=== PATIENT | female | born 1940 | race Native Hawaiian/Other Pacific Islander ===

== ENCOUNTER 2016-05-22 09:04 | Outpatient (CLI) | payer OTHER ==
[~2016-05-22 09:04] MED LIST: BENICAR HCT1 TAB PO; DIPY200C PO; FEXOFENADINE H180 MG OR; GLIP2.5T3 PO; KETO10TA34 PO; MACROBID100 MG OR; TRIM800T12 PO; VERA240T17 PO
== END 2016-05-22 19:14 | disposition home or self-care (01) ==
LOC: LABW 09:04
PROVIDERS: Internal Medicine Interventional Cardiology
DX: E78.4 Other hyperlipidemia (principal); Z09 Encounter for follow-up examination after completed treatment for conditions other than malignant neoplasm
CPT/HCPCS: 36415; 80061; 80076

== ENCOUNTER 2016-05-29 08:38 | Outpatient (CLI) | payer OTHER ==
[2016-05-29 08:54] LABS: PLATELET COUNT 250 K/uL (152-353)
== END 2016-05-29 09:38 | disposition home or self-care (01) ==
LOC: LABW 08:38
PROVIDERS: Internal Medicine Gastroenterology
DX: K92.1 Melena (principal)
CPT/HCPCS: 36415; 85027

== ENCOUNTER 2016-07-27 09:24 | Outpatient (CLI) | payer OTHER ==
[2016-07-27 09:55] LABS: PLATELET COUNT 278 K/uL (152-353)
[2016-07-27 10:50] LABS: POTASSIUM 3.7 mmol/L (3.6-5.2); SODIUM 139 mmol/L (136-145)
== END 2016-07-27 10:30 | disposition home or self-care (01) ==
LOC: LABW 09:24
PROVIDERS: Internal Medicine
DX: N39.0 Urinary tract infection, site not specified (principal); E11.9 Type 2 diabetes mellitus without complications
CPT/HCPCS: 36415; 80053; 80061; 81000; 82043; 82570; 83036; 84443; 85027; 87077; 87086; 87088; 87186

== ENCOUNTER 2016-10-04 11:21 | Emergency (ER) | payer OTHER ==
[~2016-10-04] VITALS: Ht 154.9 cm; Wt 59.0 kg
[2016-10-04 12:13] LABS: PLATELET COUNT 273 K/uL (152-353)
[2016-10-04 12:55] VITALS: BP 156/69; TEMP 98.1
== END 2016-10-04 12:55 | disposition home or self-care (01) ==
LOC: ED 11:21
DX: N20.1 Calculus of ureter (principal)
CPT/HCPCS: 36415; 81000; 85027; 99283; J1885

== ENCOUNTER 2017-01-08 09:16 | Outpatient (CLI) | payer OTHER ==
[2017-01-08 09:42] LABS: PLATELET COUNT 268 K/uL (152-353)
[2017-01-08 10:06] LABS: POTASSIUM 3.9 mmol/L (3.6-5.2); SODIUM 141 mmol/L (136-145)
== END 2017-01-08 10:20 | disposition home or self-care (01) ==
LOC: LABW 09:16
PROVIDERS: Internal Medicine Interventional Cardiology
DX: E78.5 Hyperlipidemia, unspecified (principal); Z79.899 Other long term (current) drug therapy
CPT/HCPCS: 36415; 80053; 80061; 81000; 82043; 82248; 82570; 83036; 84439; 84443; 85027; 87077; 87086; 87088; 87186

== ENCOUNTER 2017-09-05 19:10 | Emergency (ER) | payer OTHER ==
[~2017-09-05] VITALS: Ht 154.9 cm; Wt 58.1 kg
[2017-09-05 19:52] LABS: PLATELET COUNT 246 K/uL (152-353)
[2017-09-05 20:03] LABS: POTASSIUM 3.4 mmol/L (3.6-5.2)
[2017-09-05 21:35] VITALS: BP 153/62; TEMP 98.4
== END 2017-09-05 21:36 | disposition home or self-care (01) ==
LOC: ED 19:10
PROVIDERS: Emergency Medicine
DX: N20.0 Calculus of kidney (principal); R10.84 Generalized abdominal pain; R14.0 Abdominal distension (gaseous)
CPT/HCPCS: 36415; 80053; 81000; 82150; 83690; 85027; 99283; Q9963

== ENCOUNTER 2018-05-15 08:57 | Outpatient (CLI) | payer OTHER ==
[2018-05-15 09:18] LABS: PLATELET COUNT 239 K/uL (152-353)
[2018-05-15 09:40] LABS: POTASSIUM 3.4 mmol/L (3.6-5.2)
== END 2018-05-15 19:10 | disposition home or self-care (01) ==
LOC: LABW 08:57
PROVIDERS: Internal Medicine Interventional Cardiology
DX: E78.5 Hyperlipidemia, unspecified (principal); Z09 Encounter for follow-up examination after completed treatment for conditions other than malignant neoplasm; E11.9 Type 2 diabetes mellitus without complications
CPT/HCPCS: 36415; 80053; 80061; 80076; 81000; 83036; 84439; 84443; 85027

== ENCOUNTER 2018-07-11 15:04 | Emergency (ER) | payer OTHER ==
[~2018-07-11] VITALS: Ht 154.9 cm; Wt 58.1 kg
[2018-07-11 15:14] VITALS: TEMP 97.5
[2018-07-11 18:10] VITALS: BP 152/54
== END 2018-07-11 18:20 | disposition home or self-care (01) ==
LOC: ED 15:04
DX: S83.8X1A Sprain of other specified parts of right knee, initial encounter (principal)
CPT/HCPCS: 99283

== ENCOUNTER 2018-09-25 09:39 | Outpatient (CLI) | payer OTHER ==
[2018-09-25 09:55] LABS: PLATELET COUNT 239 K/uL (152-353)
[2018-09-25 10:29] LABS: POTASSIUM 3.8 mmol/L (3.6-5.2)
== END 2018-09-25 20:15 | disposition home or self-care (01) ==
LOC: LABW 09:39
PROVIDERS: Internal Medicine
DX: E11.9 Type 2 diabetes mellitus without complications (principal)
CPT/HCPCS: 36415; 80053; 80061; 81000; 82043; 82570; 83036; 84439; 84443; 85027

== ENCOUNTER 2019-04-01 10:22 | Outpatient (CLI) | payer OTHER ==
[2019-04-01 10:49] LABS: PLATELET COUNT 248 K/uL (152-353)
[2019-04-01 11:01] LABS: POTASSIUM 3.6 mmol/L (3.6-5.2)
== END 2019-04-01 22:28 | disposition home or self-care (01) ==
LOC: LABW 10:22
PROVIDERS: Internal Medicine
DX: E11.9 Type 2 diabetes mellitus without complications (principal); R82.998 Other abnormal findings in urine
CPT/HCPCS: 36415; 80053; 80061; 81000; 83036; 84439; 84443; 85027; 87077; 87086; 87088; 87186

== ENCOUNTER 2019-08-06 00:59 | Emergency (ER) | payer OTHER ==
[~2019-08-06] VITALS: Ht 154.9 cm; Wt 58.1 kg
[2019-08-06 01:58] LABS: POTASSIUM 3.6 mmol/L (3.6-5.2)
[2019-08-06 02:38] LABS: PLATELET COUNT 182 K/uL (152-353)
[2019-08-06 05:08] VITALS: BP 172/58; TEMP 98.2
== END 2019-08-06 05:08 | disposition home or self-care (01) ==
LOC: ED 00:59
PROVIDERS: Emergency Medicine
DX: N20.0 Calculus of kidney (principal); Z87.442 Personal history of urinary calculi
CPT/HCPCS: 80053; 81000; 82150; 83690; 85027; 87077; 87086; 87088; 87186; 96374; 96375; 99284; J1885; J2405; Q9963

== ENCOUNTER 2020-09-29 10:23 | Outpatient (CLI) | payer OTHER ==
[2020-09-29 11:05] LABS: PLATELET COUNT 231 K/uL (152-353)
[2020-09-29 11:31] LABS: POTASSIUM 3.4 mmol/L (3.6-5.2)
== END 2020-09-29 20:32 | disposition home or self-care (01) ==
LOC: LABW 10:23
PROVIDERS: ATTEND Internal Medicine Interventional Cardiology
DX: E78.49 Other hyperlipidemia (principal); Z09 Encounter for follow-up examination after completed treatment for conditions other than malignant neoplasm; E11.9 Type 2 diabetes mellitus without complications; R82.998 Other abnormal findings in urine
CPT/HCPCS: 36415; 80053; 80061; 80076; 81000; 82043; 82570; 83036; 84439; 84443; 85027; 87077; 87086; 87088; 87186

== ENCOUNTER 2021-11-03 08:45 | Outpatient (CLI) | payer OTHER ==
[~2021-11-03 08:45] MED LIST changes: +BENICAR HCT1 TA2 PO; +GLIPIZIDE ER PO; +JANUVIA100 MG PO; +OMEPRAZOLE40 MG PO; +ROSUVASTATIN CA20 MG PO; +VERA180T12 PO
== END 2021-11-03 19:05 | disposition home or self-care (01) ==
LOC: LABW 08:45
PROVIDERS: ATTEND Internal Medicine Interventional Cardiology
DX: E78.49 Other hyperlipidemia (principal); Z09 Encounter for follow-up examination after completed treatment for conditions other than malignant neoplasm
CPT/HCPCS: 36415; 80061; 80076

== ENCOUNTER 2021-11-27 10:07 | Outpatient (CLI) | payer OTHER | END 2021-11-27 20:42 | disposition home or self-care (01) | LOC: CT 10:07 | PROVIDERS: ATTEND Specialist | DX: N13.2 Hydronephrosis with renal and ureteral calculous obstruction (principal) ==

== ENCOUNTER 2022-04-24 12:44 | Outpatient (CLI) | payer OTHER ==
[2022-04-24 13:23] LABS: PLATELET COUNT 222 K/uL (152-353)
[2022-04-24 13:39] LABS: POTASSIUM 3.6 mmol/L (3.6-5.2)
== END 2022-04-24 18:58 | disposition home or self-care (01) ==
LOC: LAB 12:44
PROVIDERS: ATTEND Internal Medicine
DX: E11.9 Type 2 diabetes mellitus without complications (principal)
CPT/HCPCS: 80053; 80061; 81002; 83036; 84439; 84443; 85027